=== PATIENT | female | born 1970 | race Hispanic/Latino ===

== ENCOUNTER 2023-09-05 11:04 | Outpatient (CLI) | payer OTHER | END 2023-09-05 11:05 | disposition home or self-care (01) | LOC: CSHLAB 11:04 | PROVIDERS: ATTEND Surgery | DX: Z01.818 Encounter for other preprocedural examination (principal); C50.912 Malignant neoplasm of unspecified site of left female breast | CPT/HCPCS: 93005; 93010 ==

== ENCOUNTER 2023-09-09 07:51 | Day surgery (SDC) | payer OTHER ==
[2023-09-05 11:25] VITALS: BMI 27.3
[2023-09-09] MEDS ORDERED: Bupivacaine PF 0.5% 30 ML VIAL ONE (09:03)
[2023-09-09] MEDS ORDERED: EPINEPHrine 1 MG/ML VIAL ONE (09:03)
[2023-09-09] MEDS ORDERED: Isosulfan Blue 50 MG/5 ML VIAL ONE (09:15)
[2023-09-09] MEDS ORDERED: CEFAZOLIN 2 GM VIAL ONE (09:25)
[2023-09-09] MEDS ORDERED: fentaNYL 50 mcg/mL 1 mL Vial ONE ×4 (10:22→13:25)
[2023-09-09] MEDS ORDERED: Lidocaine 1% PF 5 ML VIAL ONE (10:22)
[2023-09-09] MEDS ORDERED: PROPOFOL 20 ML ONE (10:22)
[2023-09-09] MEDS ORDERED: Ondansetron PF 4 MG/2 ML Vial ONE ×2 (10:26→13:02)
[2023-09-09] MEDS ORDERED: Dexamethasone 4 mg/ml Vial ONE (10:26)
[2023-09-09] MEDS ORDERED: ePHEDrine Sulfate 50 MG/10 ML VIAL ONE (11:05)
[2023-09-09] MEDS ORDERED: Acetaminophen 325 MG TAB PO PRN (12:55)
[2023-09-09] MEDS ORDERED: traMADol HCl 50 MG TAB PO PRN (12:55)
[2023-09-09] MEDS ORDERED: HYDROcodone/Acetaminophen 10/325 mg Tablet ONE (13:55)
[2023-09-09] MEDS ORDERED: HYDROcodone/Acetaminophen 5/325 mg Tablet ONE (13:58)
== END 2023-09-09 14:35 | disposition home or self-care (01) ==
LOC: CSHSDC 07:51
PROVIDERS: ATTEND Surgery
PROC: 0HB5XZX Excision of Chest Skin, External Approach, Diagnostic (ICD-10-PCS; principal; 2023-09-09)
PROC: 0HBU0ZZ Excision of Left Breast, Open Approach (ICD-10-PCS; principal; 2023-09-09)
DX: C50.412 Malignant neoplasm of upper-outer quadrant of left female breast (principal); C77.3 Secondary and unspecified malignant neoplasm of axilla and upper limb lymph nodes; I10 Essential (primary) hypertension; Z98.890 Other specified postprocedural states; Z88.5 Allergy status to narcotic agent; Z91.040 Latex allergy status; Z91.048 Other nonmedicinal substance allergy status
CPT/HCPCS: 76098; 88307; 88342; C1713; J0171; J0665; J1100; J2405; J2704; J3010; Q9968

== ENCOUNTER 2023-10-08 05:25 | Day surgery (SDC) | payer OTHER ==
[2023-10-03 15:16] VITALS: BMI 26.4
[2023-10-08] MEDS ORDERED: Bupivacaine PF 0.5% 30 ML VIAL ONE (06:22)
[2023-10-08] MEDS ORDERED: EPINEPHrine 1 MG/ML VIAL ONE (06:22)
[2023-10-08] MEDS ORDERED: CEFAZOLIN 2 GM VIAL ONE (06:40)
[2023-10-08] MEDS ORDERED: PROPOFOL 20 ML ONE (06:54)
[2023-10-08] MEDS ORDERED: Midazolam HCl 2 mg/2 ml Vial ONE (06:54)
[2023-10-08] MEDS ORDERED: fentaNYL 50 mcg/mL 1 mL Vial ONE (06:54)
[2023-10-08] MEDS ORDERED: Ondansetron PF 4 MG/2 ML Vial ONE (06:55)
[2023-10-08] MEDS ORDERED: Lidocaine 1% PF 5 ML VIAL ONE (06:55)
[2023-10-08] MEDS ORDERED: traMADol HCl 50 MG TAB PO PRN (07:38)
== END 2023-10-08 09:05 | disposition home or self-care (01) ==
LOC: CSHSDC 05:25
PROVIDERS: ATTEND Surgery
PROC: 0JH63WZ Insertion of Totally Implantable Vascular Access Device into Chest Subcutaneous Tissue and Fascia, Percutaneous Approach (ICD-10-PCS; principal; 2023-10-08)
DX: C50.912 Malignant neoplasm of unspecified site of left female breast (principal); I10 Essential (primary) hypertension; Z79.899 Other long term (current) drug therapy; Z87.891 Personal history of nicotine dependence; Z87.59 Personal history of other complications of pregnancy, childbirth and the puerperium; Z98.890 Other specified postprocedural states; Z98.51 Tubal ligation status; Z88.5 Allergy status to narcotic agent
CPT/HCPCS: 71045; C1788; J0171; J0665; J1642; J2250; J2405; J2704; J3010